=== PATIENT | female | born 1950 | race Caucasian/White ===

== ENCOUNTER 2023-12-21 22:05 | Inpatient (IN) | payer MEDICARE ==
[2023-12-21] MEDS: ONDANSETRON 4 MG/2 ML VIAL IVP STA (23:11)
[2023-12-21] MEDS: MORPHINE SULFATE 4 MG/ML SYRINGE IVP STA (23:12)
[2023-12-21 23:18] LABS: Basophils % (A) 0 %; Eosinophils # (A) 0.2 k/uL (0-0.7); Eosinophils % (A) 1 %; HCT 45.2 % (34.0-46.0); HGB 14.6 gm/dL (11.4-16.0); Lymphocytes # (A) 1.7 k/uL (1.0-4.8); Lymphocytes % (A) 9 %; MCH 29.7 pg (25.0-35.0); MCHC 32.4 g/dL (31.0-37.0); MCV 91.7 fL (80.0-100.0); Mean Platelet Volume 9.2; Monocytes # (A) 0.9 k/uL (0-1.0); Monocytes % (A) 5 %; Neutrophils # (A) 15.4 k/uL (1.3-7.7); Neutrophils % (A) 84 %; Platelet Count 262 k/uL (150-450); RBC 4.93 m/uL (3.80-5.40); RDW 12.8 % (11.5-15.5); WBC 18.4 k/uL (3.8-10.6)
[2023-12-21] MEDS: SODIUM CHLORIDE 0.9% 1,000 ML IV ONE (23:19)
[2023-12-21 23:29] LABS: Partial Thromboplastin Time 22.6 sec (22.0-30.0); Prothrombin Time 10.8 sec (10.0-12.5)
[2023-12-21 23:35] LABS: ALT 281 U/L (4-34); AST 350 U/L (14-36); African American GFR (CKD) 82 (>60 ml/min/1.73 sqM); Albumin 3.9 g/dL (3.5-5.0); Alkaline Phosphatase 174 U/L (38-126); Anion Gap 10 mmol/L; Blood Urea Nitrogen 26 mg/dL (7-17); Carbon Dioxide 22 mmol/L (22-30); Chloride 108 mmol/L (98-107); Glucose 147 mg/dL (74-99); Magnesium 1.8 mg/dL (1.6-2.3); Non-African American GFR(CKD) 71 (>60 ml/min/1.73 sqM); Potassium 3.9 mmol/L (3.5-5.1); Sodium 140 mmol/L (137-145); Total Bilirubin 2.3 mg/dL (0.2-1.3); Total Protein 7.4 g/dL (6.3-8.2)
[2023-12-22] MEDS: diphenhydrAMINE 50 MG/ML 1 ML VIAL IVP STA (00:02)
[2023-12-22] MEDS: HYDROmorphone 1 MG/ML 1 ML SYRINGE IVP STA (00:04)
[2023-12-22] MEDS: METOCLOPRAMIDE 5 MG/ML 2 ML VIAL IVP STA (00:08)
--- NOTE | 2023-12-22 00:25 | ED ---
Chest Pain HPI - General Chief Complaint: Chest Pain Stated Complaint: Chest Pain,Back Pain Time Seen by Provider: 12/21/23 22:10 Source: patient Mode of arrival: ambulatory Limitations: no limitations - History of Present Illness Initial Comments: 73-year-old female with no reported past medical history presents emergency department reporting epigastric pain. States that around 7:00 she had sudden onset of chest, back and abdominal pain. No history of similar in the past. She denies history of cardiac disease. No associated shortness of breath. She took Motrin for the pain which did not help. She does admit to nausea with associated vomiting. No numbness, tingling or weakness in her arms or legs. Patient does not drink alcohol. Admits to a history of normal to slightly high cholesterol 1 year ago. No history of gallstones. Denies fevers. No other alleviating, precipitating modifying factors - Related Data Allergies Allergy/AdvReac Type Severity Reaction Status Date / Time No Known Allergies Allergy Verified 12/21/23 22:10 Review of Systems ROS Statement: Those systems with pertinent positive or pertinent negative responses have been documented in the HPI. ROS Other: All systems not noted in ROS Statement are negative. Past Medical History Past Medical History: Osteoarthritis (OA) History of Any Multi-Drug Resistant Organisms: None Reported Past Surgical History: No Surgical Hx Reported Past Psychological History: No Psychological Hx Reported Smoking Status: Never smoker Past Alcohol Use History: Occasional Past Drug Use History: None Reported General Exam Limitations: no limitations General appearance: alert, in distress Head exam: Present: atraumatic, normocephalic, normal inspection Eye exam: Present: normal appearance, PERRL, EOMI. Absent: scleral icterus, conjunctival injection, periorbital swelling ENT exam: Present: normal exam, mucous membranes moist Neck exam: Present: normal inspection. Absent: tenderness, meningismus, lymphadenopathy Respiratory exam: Present: normal lung sounds bilaterally. Absent: respiratory distress, wheezes, rales, rhonchi, stridor Cardiovascular Exam: Present: regular rate, normal rhythm, normal heart sounds. Absent: systolic murmur, diastolic murmur, rubs, gallop, clicks GI/Abdominal exam: Present: tenderness (Epigastric) Extremities exam: Present: normal inspection, full ROM, normal capillary refill. Absent: tenderness, pedal edema, joint swelling, calf tenderness Back exam: Present: normal inspection Neurological exam: Present: alert, oriented X3, CN II-XII intact Course Vital Signs 12/21/23 12/21/23 12/22/23 22:08 23:22 01:28 Temperature 97.8 F Pulse Rate 69 68 87 Respiratory 18 18 14 Rate Blood Pressure 122/67 130/73 156/63 O2 Sat by Pulse 96 96 95 Oximetry 12/22/23 02:03 Temperature Pulse Rate 80 Respiratory 16 Rate Blood Pressure 137/74 O2 Sat by Pulse 95 Oximetry Chest Pain MDM - MDM Was pt. sent in by a medical professional or institution (, PA, SNOWBOARDING INSTRUCTOR, urgent care, hospital, or longterm...) When possible be specific @ -No Did you speak to anyone other than the patient for history (EMS, parent, family, police, friend...)? What history was obtained from this source @ -No Did you review nursing and triage notes (agree or disagree)? Why? @ -I reviewed and agree with nursing and triage notes Were old charts reviewed (outside hosp., previous admission, EMS record, old EKG, old radiological studies, urgent care reports/EKG's, longterm records)? Report findings @ -No old charts were reviewed Differential Diagnosis (chest pain, altered mental status, abdominal pain women, abdominal pain men, vaginal bleeding, weakness, fever, dyspnea, syncope, headache, dizziness, GI bleed, back pain, seizure, CVA, palpatations, mental health, musculoskeletal)? @ -Differential Abdominal Pain Women: Appendicitis, Cholecystitis, diverticulosis, ischemic bowel, pancreatitis, hepatitis, UTI, gastroenteritis, AAA, incarcerated hernia, bowel obstruction, constipation, inflammatory bowel, hepatitis, peptic ulcer disease, splenic infarction, perforated viscus, vulvitis, ovarian torsion, PID, kidney stone, placenta abruption, this is not meant to be an all-inclusive list EKG interpreted by me (3pts min.). @ -Yes and demonstrates sinus rhythm with a rate of 65. MA interval 190. QRS 97. QTc of 461. No acute ST segment elevations or depressions X-rays interpreted by me (1pt min.). @ -Yes and demonstrates no acute process CT interpreted by me (1pt min.). @ -Yes and demonstrates acute pancreatitis without gallbladder issue U/S interpreted by me (1pt. min.). @ -None done What testing was considered but not performed or refused? (CT, X-rays, U/S, labs)? Why? @ -Gallbladder ultrasound was considered however will be completed in the morning What meds were considered but not given or refused? Why? @ -None Did you discuss the management of the patient with other professionals (professionals i.e. , PA, SNOWBOARDING INSTRUCTOR, lab, RT, psych nurse, social work supervisor, communications administrator, teacher, strike operations officer, gearcase assembler)? Give summary @ -Spoke with Dr. Godoy who agreed to admit the patient Was smoking cessation discussed for >3mins.? @ -No Was critical care preformed (if so, how long)? @ -No Were there social determinants of health that impacted care today? How? (Homelessness, low income, unemployed, alcoholism, drug addiction, transportation, low edu. Level, literacy, decrease access to med. care, detention, rehab)? @ -No Was there de-escalation of care discussed even if they declined (Discuss DNR or withdrawal of care, Hospice)? DNR status @ -No What co-morbidities impacted this encounter? (DM, HTN, Smoking, COPD, CAD, Cancer, CVA, ARF, Chemo, Hep., AIDS, mental health diagnosis, sleep apnea, morbid obesity)? @ -None Was patient admitted / discharged? Hospital course, mention meds given and route, prescriptions, significant lab abnormalities, going to OR and other pertinent info. @ -Upon arrival patient seen and evaluated in room 2. Thorough history and physical exam was performed. IV access was established. Laboratory studies were conducted. Patient was given pain and nausea medications which entirely resolved her symptoms. Laboratory studies and CT are consistent with acute pancreatitis. No signs of gallstone pancreatitis at this time. Called and spoke with Dr. Godoy to discuss case. He was agreeable to admission. Requested that surgery be placed on consult. He is aware that GI is not available at this time. Patient was pain-free and admitted to the hospital in stable condition Undiagnosed new problem with uncertain prognosis? @ -No Drug Therapy requiring intensive monitoring for toxicity (Heparin, Nitro, Insulin, Cardizem)? @ -No Were any procedures done? @ -No Diagnosis/symptom? @ -Acute epigastric abdominal pain, acute pancreatitis Acute, or Chronic, or Acute on Chronic? @ -Acute Uncomplicated (without systemic symptoms) or Complicated (systemic symptoms)? @ -Complicated Side effects of treatment? @ -No Exacerbation, Progression, or Severe Exacerbation? @ -No Poses a threat to life or bodily function? How? (Chest pain, USA, ID, pneumonia, PE, COPD, DKA, ARF, appy, cholecystitis, CVA, Diverticulitis, Homicidal, Suicidal, threat to staff... and all critical care pts) @ -No Disposition Clinical Impression: Acute pancreatitis Disposition: ADMITTED IP TO THIS [facility] Condition: Stable Is patient prescribed a controlled substance at d/c from ED?: No Time of Disposition: 02:00 Decision to Admit Reason: Admit from EC Decision Date: 12/22/23 Decision Time: 02:00
--- NOTE | 2023-12-22 01:02 | CT ---
EXAM: CT Chest With Intravenous Contrast CLINICAL HISTORY: ITS.REASON CT Reason: abd pain, chest pain TECHNIQUE: Axial computed tomography images of the chest with intravenous contrast. This CT exam was performed using one or more of the following dose reduction techniques: automated exposure control, adjustment of the mA and/or kV according to patient size, and/or use of iterative reconstruction technique. COMPARISON: No relevant prior studies available. FINDINGS: Lungs: Atelectasis at the lung bases. No mass. Pleural space: Unremarkable. No pneumothorax. No significant effusion. Heart: Unremarkable. No cardiomegaly. No significant pericardial effusion. No significant coronary artery calcifications. Bones/joints: Unremarkable. No acute fracture. No dislocation. Soft tissues: Unremarkable. Vasculature: Unremarkable. No thoracic aortic aneurysm. No pulmonary embolism. Lymph nodes: Unremarkable. No enlarged lymph nodes. IMPRESSION: No pulmonary embolism. EXAM: CT Abdomen and Pelvis With Intravenous Contrast CLINICAL HISTORY: ITS.REASON CT Reason: abd pain, chest pain TECHNIQUE: Axial computed tomography images of the abdomen and pelvis with intravenous contrast. This CT exam was performed using one or more of the following dose reduction techniques: automated exposure control, adjustment of the mA and/or kV according to patient size, and/or use of iterative reconstruction technique. COMPARISON: No relevant prior studies available. FINDINGS: Lung bases: Unremarkable. No mass. No consolidation. ABDOMEN: Liver: Unremarkable. No mass. Gallbladder and bile ducts: Unremarkable. No calcified stones. No ductal dilation. Pancreas: Edema surrounding the pancreas, consistent with pancreatitis. No ductal dilation. Spleen: Unremarkable. No splenomegaly. Adrenals: Unremarkable. No mass. Kidneys and ureters: Unremarkable. No solid mass. No hydronephrosis. Stomach and bowel: Unremarkable. No obstruction. No mucosal thickening. PELVIS: Appendix: No findings to suggest acute appendicitis. Bladder: Unremarkable. No mass. Reproductive: Unremarkable as visualized. ABDOMEN and PELVIS: Intraperitoneal space: Unremarkable. No free air. No significant fluid collection. Bones/joints: No acute fracture. No dislocation. Soft tissues: Unremarkable. Vasculature: Unremarkable. No abdominal aortic aneurysm. Lymph nodes: Unremarkable. No enlarged lymph nodes. IMPRESSION: Edema surrounding the pancreas, consistent with pancreatitis.
[2023-12-22 01:19] LABS: Lipase >20000 U/L (23-300)
--- NOTE | 2023-12-22 01:20 | XR ---
EXAM: XR Chest, 2 Views CLINICAL HISTORY: ITS.REASON XR Reason: Chest Pain TECHNIQUE: Frontal and lateral views of the chest. COMPARISON: No relevant prior studies available. FINDINGS: Lungs: Retrocardiac opacities, concerning for pneumonia. Pleural space: Unremarkable. No pneumothorax. Heart: Unremarkable. No cardiomegaly. Mediastinum: Unremarkable. Normal mediastinal contour. Bones/joints: Unremarkable. No acute fracture. IMPRESSION: Retrocardiac opacities, concerning for pneumonia.
[2023-12-22] MEDS ORDERED: NALOXONE 0.4 MG/ML 1 ML VIAL IV PRN (02:02)
[2023-12-22] MEDS: SODIUM CHLORIDE 0.9% 1,000 ML IV SCH (02:17)
[2023-12-22] MEDS: HYDROmorphone 1 MG/ML 1 ML SYRINGE IVP PRN (03:27)
--- NOTE | 2023-12-22 08:28 | US ---
EXAMINATION TYPE: US gallbladder DATE OF EXAM: 12/22/2023 COMPARISON: 12/22/2023 CLINICAL INDICATION: Female, 73 years old with history of pancreatitis; Pancreatitis TECHNIQUE: Grayscale and color Doppler imaging of the right upper quadrant was performed. FINDINGS: EXAM MEASUREMENTS: Liver Length: 18.1 cm Gallbladder Wall: 0.2 cm CBD: 0.7 cm Right Kidney: 9.9 x 4.2 x 3.6 cm Pancreas: Echogenic in appearance. Tail obscured by overlying bowel gas Liver: wnl as visualized Gallbladder: multiple mobile echogenic foci, no wall thickening Evidence for sonographic Tsai's sign: neg CBD: wnl Right Kidney: No hydronephrosis or masses seen IMPRESSION: 1. No evidence for acute process. 2. Cholelithiasis. [facility], , 12/22/2023 8:26 AM
[2023-12-22 09:17] LABS: ALT 292 U/L (4-34); African American GFR (CKD) >90 (>60 ml/min/1.73 sqM); Albumin 4.1 g/dL (3.5-5.0); Albumin/Globulin Ratio 1.1; Anion Gap 12 mmol/L; Blood Urea Nitrogen 25 mg/dL (7-17); Calcium 8.6 mg/dL (8.4-10.2); Carbon Dioxide 20 mmol/L (22-30); Chloride 109 mmol/L (98-107); Globulin 3.6 g/dL; Glucose 138 mg/dL (74-99); Non-African American GFR(CKD) 82 (>60 ml/min/1.73 sqM); Sodium 141 mmol/L (137-145); Total Bilirubin 1.6 mg/dL (0.2-1.3); Total Protein 7.7 g/dL (6.3-8.2)
[2023-12-22 09:29] LABS: Amylase 1968 U/L (30-110)
[2023-12-22 09:30] LABS: AST 297 U/L (14-36); Alkaline Phosphatase 176 U/L (38-126); Potassium 4.9 mmol/L (3.5-5.1)
[2023-12-22 09:49] LABS: Lipase 11629 U/L (23-300)
--- NOTE | 2023-12-22 12:19 | P.GSCN ---
History of Present Illness Consult date: 12/22/23 History of present illness: CHIEF COMPLAINT: Abdominal pain HISTORY OF PRESENT ILLNESS: this is a 73-year-old female who presented to the hospital to complaints of epigastric abdominal pain that radiates to the back. Symptoms started around 7 PM last night. She also was having nausea and vomiting. Earlier in the the day she had eaten sausage with eggs. Patient denies any prior history of pancreatitis or gallstones. She denies any alcohol use. She had a CTA of chest abdomen pelvis that had reported edema around the pancreas and concerns for pancreatitis. Gallbladder ultrasound had reported cholelithiasis. Patient's LFTs and total bilirubin were also elevated on admission. Patient does report her pain is less today than it was yesterday. Patient may have passed. PAST MEDICAL HISTORY: Osteoarthritis PAST SURGICAL HISTORY: None MEDICATIONS: See below ALLERGIES: See below SOCIAL HISTORY: No illicit drug use. REVIEW OF SYSTEMS: CONSTITUTIONAL: Denies fever or chills. HEENT: Denies blurred vision, vision changes, or eye pain. Denies hemoptysis CARDIOVASCULAR: Denies chest pain or pressure. RESPIRATORY: No shortness of breath. GASTROINTESTINAL: See HPI for pertinent findings HEMATOLOGIC: Denies bleeding disorders. GENITOURINARY: Denies any blood in urine or increased urinary frequency. SKIN: Denies pruitis. Denies rash. PHYSICAL EXAM: VITAL SIGNS: Reviewed GENERAL: Well-developed in no acute distress. HEENT: No sclera icterus. Extraocular movements grossly intact. Moist buccal mucosa. Head is atraumatic, normocephalic. No nasal drainage. ABDOMEN: Soft. Nondistended. Epigastric and right upper quadrant tenderness with palpation no rebound or guarding noted. NEUROLOGIC: Alert and oriented. Cranial nerves II through XII grossly intact. LABORATORY DATA: WBC 18.4 Hgb 14.6 platelets 262 Sodium 141 potassium is 4.9 creatinine 0.73 Total bilirubin is down from 2.3-1.6 AST 350 down to 297 ALT 2 81-2 92 alk phos 1 74-1 76 Lipase greater than 20,000 down to 11 629 IMAGING: CT scan chest abdomen and pelvis reports no pulmonary embolism. Edema surrounding the pancreas consistent with pancreatitis. Gallbladder ultrasound no evidence for acute process. Cholelithiasis. ASSESSMENT: 1. Gallstone pancreatitis 2. Elevated total bilirubin and LFTs trending downwards. Patient likely passed a stone. PLAN: -Patient scheduled tentatively for a laparoscopic cholecystectomy tomorrow with Dr. Baig -Clear liquid diet today -N.p.o. after midnight -Repeat CBC CMP and lipase in a.m. -Continue antibiotics -Continue IV fluids Physician Machine Splitter note has been reviewed by physician. Signing provider agrees with the documented findings, assessment, and plan of care. Past Medical History Past Medical History: Osteoarthritis (OA) History of Any Multi-Drug Resistant Organisms: None Reported Past Surgical History: Tubal Ligation Additional Past Surgical History / Comment(s): Bunion surgery Past Psychological History: No Psychological Hx Reported Smoking Status: Former smoker Past Alcohol Use History: Occasional Past Drug Use History: None Reported - Past Family History Mother Family Medical History: Cancer Additional Family Medical History / Comment(s): Mother is 95 years old Father Additional Family Medical History / Comment(s): Father in his fifties Medications and Allergies Home Medications Medication Instructions Recorded Confirmed Type Alendronate Sodium [Fosamax] 70 mg PO WE 12/22/23 12/22/23 History Ibuprofen [Motrin] 800 mg PO Q8H PRN 12/22/23 12/22/23 History Allergies Allergy/AdvReac Type Severity Reaction Status Date / Time No Known Allergies Allergy Verified 12/22/23 08:35 Surgical - Exam Vital Signs Temp Pulse Resp BP Pulse Ox 97.8 F 69 18 122/67 96 12/21/23 22:08 12/21/23 22:08 12/21/23 22:08 12/21/23 22:08 12/21/23 22:08 Results - Labs 12/21/23 22:50 12/22/23 04:21 Abnormal Lab Results - Last 24 Hours (Table) 12/21/23 12/21/23 12/22/23 Range/Units 22:50 22:50 04:21 WBC 18.4 H (3.8-10.6) k/uL Neutrophils # 15.4 H (1.3-7.7) k/uL Chloride 108 H (98-107) mmol/L Carbon Dioxide (22-30) mmol/L BUN 26 H (7-17) mg/dL Glucose 147 H (74-99) mg/dL Total Bilirubin 2.3 H (0.2-1.3) mg/dL AST 350 H (14-36) U/L ALT 281 H (4-34) U/L Alkaline Phosphatase 174 H (38-126) U/L Cholesterol 225.00 H (0.00-200.00) mg/dL Amylase (30-110) U/L Lipase >19204 H (23-300) U/L 12/22/23 Range/Units 04:21 WBC (3.8-10.6) k/uL Neutrophils # (1.3-7.7) k/uL Chloride 109 H (98-107) mmol/L Carbon Dioxide 20 L (22-30) mmol/L BUN 25 H (7-17) mg/dL Glucose 138 H (74-99) mg/dL Total Bilirubin 1.6 H (0.2-1.3) mg/dL AST 297 H (14-36) U/L ALT 292 H (4-34) U/L Alkaline Phosphatase 176 H (38-126) U/L Cholesterol (0.00-200.00) mg/dL Amylase 1968 H* (30-110) U/L Lipase 53633 H (23-300) U/L Diabetes panel 12/21/23 12/22/23 Range/Units 22:50 04:21 Sodium 140 141 (137-145) mmol/L Potassium 3.9 4.9 (3.5-5.1) mmol/L Chloride 108 H 109 H (98-107) mmol/L Carbon Dioxide 22 20 L (22-30) mmol/L BUN 26 H 25 H (7-17) mg/dL Creatinine 0.82 0.73 (0.52-1.04) mg/dL Glucose 147 H 138 H (74-99) mg/dL Calcium 9.0 8.6 (8.4-10.2) mg/dL AST 350 H 297 H (14-36) U/L ALT 281 H 292 H (4-34) U/L Alkaline Phosphatase 174 H 176 H (38-126) U/L Total Protein 7.4 7.7 (6.3-8.2) g/dL Albumin 3.9 4.1 (3.5-5.0) g/dL Calcium panel 12/21/23 12/22/23 Range/Units 22:50 04:21 Calcium 9.0 8.6 (8.4-10.2) mg/dL Albumin 3.9 4.1 (3.5-5.0) g/dL Pituitary panel 12/21/23 12/22/23 Range/Units 22:50 04:21 Sodium 140 141 (137-145) mmol/L Potassium 3.9 4.9 (3.5-5.1) mmol/L Chloride 108 H 109 H (98-107) mmol/L Carbon Dioxide 22 20 L (22-30) mmol/L BUN 26 H 25 H (7-17) mg/dL Creatinine 0.82 0.73 (0.52-1.04) mg/dL Glucose 147 H 138 H (74-99) mg/dL Calcium 9.0 8.6 (8.4-10.2) mg/dL Adrenal panel 12/21/23 12/22/23 Range/Units 22:50 04:21 Sodium 140 141 (137-145) mmol/L Potassium 3.9 4.9 (3.5-5.1) mmol/L Chloride 108 H 109 H (98-107) mmol/L Carbon Dioxide 22 20 L (22-30) mmol/L BUN 26 H 25 H (7-17) mg/dL Creatinine 0.82 0.73 (0.52-1.04) mg/dL Glucose 147 H 138 H (74-99) mg/dL Calcium 9.0 8.6 (8.4-10.2) mg/dL Total Bilirubin 2.3 H 1.6 H (0.2-1.3) mg/dL AST 350 H 297 H (14-36) U/L ALT 281 H 292 H (4-34) U/L Alkaline Phosphatase 174 H 176 H (38-126) U/L Total Protein 7.4 7.7 (6.3-8.2) g/dL Albumin 3.9 4.1 (3.5-5.0) g/dL
[2023-12-22] MEDS: PIPERACILLIN-TAZOBACTAM 3.375 GM in SODIUM CHLORIDE 0.9% 100 ML IVPB SCH (15:43)
[2023-12-22 20:50] LABS: ALT 191 U/L (4-34); AST 115 U/L (14-36); African American GFR (CKD) >90 (>60 ml/min/1.73 sqM); Albumin 3.4 g/dL (3.5-5.0); Albumin/Globulin Ratio 1.1; Alkaline Phosphatase 143 U/L (38-126); Anion Gap 3 mmol/L; Blood Urea Nitrogen 18 mg/dL (7-17); Calcium 7.8 mg/dL (8.4-10.2); Carbon Dioxide 20 mmol/L (22-30); Chloride 113 mmol/L (98-107); Globulin 3.1 g/dL; Glucose 116 mg/dL (74-99); Non-African American GFR(CKD) 86 (>60 ml/min/1.73 sqM); Potassium 3.8 mmol/L (3.5-5.1); Sodium 136 mmol/L (137-145); Total Protein 6.5 g/dL (6.3-8.2)
--- NOTE | 2023-12-22 23:09 | P.CONS ---
History of Present Illness - Reason for Consult Consult date: 12/22/23 Cholangitis Requesting physician: Erwin Johnson - Chief Complaint Abdominal pain x 1 day - History of Present Illness Patient is a 73-year-old female with a past medical history significant for osteoarthritis tubal ligation and former smoker presenting to the hospital for evaluation of abdominal pain pain has been sudden in onset and started around 7 at the day of presentation to the hospital patient was describing the pain to be mostly in epigastric area sharp and almost 10 out of 10 in severity and no significant radiation patient did have associated nausea and vomiting however denies having any diarrhea or constipation patient mention she did took some Motrin without any relief patient denies drinking alcohol or high-grade fever on presentation to the hospital patient was afebrile no fever have been called subsequently patient was nontachycardic hypotensive or hypoxic and no need for supplemental oxygen patient did have white count of 18.4 with a left shift creatinine has been normal liver enzymes are elevated patient did have a CT of the chest abdominal pelvis no PE some atelectasis cooperated antibiotics were unremarkable there was edema surrounding the pancreas consistent with pancreatitis patient has been started on Zosyn infectious was consulted regarding cholangitis Review of Systems Positive point and negatives has been mentioned in the HPI, complete review of systems was performed and all other systems are negative Past Medical History Past Medical History: Osteoarthritis (OA) History of Any Multi-Drug Resistant Organisms: None Reported Past Surgical History: Tubal Ligation Additional Past Surgical History / Comment(s): Bunion surgery Past Psychological History: No Psychological Hx Reported Smoking Status: Former smoker Past Alcohol Use History: Occasional Past Drug Use History: None Reported - Past Family History Mother Family Medical History: Cancer Additional Family Medical History / Comment(s): Mother is 95 years old Father Additional Family Medical History / Comment(s): Father in his fifties Medications and Allergies Home Medications Medication Instructions Recorded Confirmed Type Alendronate Sodium [Fosamax] 70 mg PO WE 12/22/23 12/22/23 History Ibuprofen [Motrin] 800 mg PO Q8H PRN 12/22/23 12/22/23 History Allergies Allergy/AdvReac Type Severity Reaction Status Date / Time No Known Allergies Allergy Verified 12/22/23 08:35 Physical Exam Vitals: Vital Signs Temp Pulse Pulse Resp BP BP Pulse Ox 12/22/23 14:44 98.4 F 90 17 115/60 90 L 12/22/23 12:00 97.9 F 92 16 120/66 91 L 12/22/23 07:18 97.7 F 80 16 120/72 91 L 12/22/23 03:02 97.5 F L 84 16 140/83 94 L 12/22/23 03:00 84 16 12/22/23 02:23 97.1 F L 79 14 137/74 95 12/22/23 02:03 80 16 137/74 95 12/22/23 01:28 87 14 156/63 95 12/21/23 23:22 68 18 130/73 96 12/21/23 22:08 97.8 F 69 18 122/67 96 Intake and Output 12/22/23 12/22/23 12/22/23 06:59 14:59 22:59 Other: Voiding Method Toilet Toilet # Voids 2 Weight 106.594 kg GENERAL DESCRIPTION: Elderly female lying in bed, no distress. No tachypnea or accessory muscle of respiration use. HEENT: Shows Pallor , no scleral icterus. Oral mucous membrane is dry. No pharyngeal erythema or thrush NECK: Trachea central, no thyromegaly. LUNGS: Unlabored breathing. Clear to auscultation anteriorly. No wheeze or crackle. HEART: S1, S2, regular rate and rhythm. No loud murmur ABDOMEN: Soft, epigastric tenderness , no guarding or rigidity, no organomegaly EXTREMITIES: No edema of feet. SKIN: No rash, no masses palpable. NEUROLOGICAL: The patient is awake, alert, oriented x3, mood and affect normal. Results CBC & Chem 7: 12/21/23 22:50 12/22/23 20:23 Labs: Abnormal Lab Results - Last 24 Hours (Table) 12/21/23 12/21/23 12/22/23 Range/Units 22:50 22:50 04:21 WBC 18.4 H (3.8-10.6) k/uL Neutrophils # 15.4 H (1.3-7.7) k/uL Chloride 108 H (98-107) mmol/L Carbon Dioxide (22-30) mmol/L BUN 26 H (7-17) mg/dL Glucose 147 H (74-99) mg/dL Total Bilirubin 2.3 H (0.2-1.3) mg/dL AST 350 H (14-36) U/L ALT 281 H (4-34) U/L Alkaline Phosphatase 174 H (38-126) U/L Cholesterol 225.00 H (0.00-200.00) mg/dL Amylase (30-110) U/L Lipase >69582 H (23-300) U/L 12/21/ Range/Units 04:21 WBC (3.8-10.6) k/uL Neutrophils # (1.3-7.7) k/uL Chloride 109 H (98-107) mmol/L Carbon Dioxide 20 L (22-30) mmol/L BUN 25 H (7-17) mg/dL Glucose 138 H (74-99) mg/dL Total Bilirubin 1.6 H (0.2-1.3) mg/dL AST 297 H (14-36) U/L ALT 292 H (4-34) U/L Alkaline Phosphatase 176 H (38-126) U/L Cholesterol (0.00-200.00) mg/dL Amylase 1968 H* (30-110) U/L Lipase 31591 H (23-300) U/L Assessment and Plan (1) Cholangitis Current Visit: Yes Status: Acute Code(s): K83.09 - OTHER CHOLANGITIS SNOMED Code(s): 22497548 (2) Leukocytosis Current Visit: Yes Status: Acute Code(s): D72.829 - ELEVATED WHITE BLOOD CELL COUNT, UNSPECIFIED SNOMED Code(s): 623221263 (3) Acute pancreatitis Current Visit: Yes Status: Acute Code(s): K85.90 - ACUTE PANCREATITIS WITHOUT NECROSIS OR INFECTION, UNSP SNOMED Code(s): 117840623 Plan: 1patient presented to hospital with acute abdominal pain in the epigastric area this patient has been diagnosed with acute pancreatitis however the patient also have elevated liver enzymes with the possibility of gallstone pancreatitis and cholangitis not entirely excluded, will likely need to cover for the pancreatic gram-negative 2we will continue patient on Zosyn 3.37 g every 8 hours 3-n.p.o. and abdominal pain controlled We will follow on clinical condition and cultures to further adjust medication if needed Thank you for this consultation we will follow the patient along with you Dictation was produced using [employer] software. please excuse any grammatical, word or spelling errors. Time with Patient: Greater than 30
[2023-12-23 05:51] LABS: Basophils % (A) 0 %; Eosinophils # (A) 0.1 k/uL (0-0.7); Eosinophils % (A) 1 %; HCT 42.8 % (34.0-46.0); HGB 13.5 gm/dL (11.4-16.0); Hypochromasia Slight; Lymphocytes # (A) 1.3 k/uL (1.0-4.8); Lymphocytes % (A) 9 %; MCHC 31.7 g/dL (31.0-37.0); MCV 94.6 fL (80.0-100.0); Mean Platelet Volume 8.4; Monocytes # (A) 1.1 k/uL (0-1.0); Monocytes % (A) 7 %; Neutrophils # (A) 11.8 k/uL (1.3-7.7); Neutrophils % (A) 81 %; Platelet Count 228 k/uL (150-450); RBC 4.52 m/uL (3.80-5.40); RDW 13.1 % (11.5-15.5); WBC 14.6 k/uL (3.8-10.6)
[2023-12-23 06:09] LABS: ALT 167 U/L (4-34); AST 84 U/L (14-36); African American GFR (CKD) >90 (>60 ml/min/1.73 sqM); Albumin 3.2 g/dL (3.5-5.0); Alkaline Phosphatase 132 U/L (38-126); Anion Gap 6 mmol/L; Blood Urea Nitrogen 17 mg/dL (7-17); Calcium 7.9 mg/dL (8.4-10.2); Carbon Dioxide 19 mmol/L (22-30); Chloride 111 mmol/L (98-107); Globulin 3.2 g/dL; Glucose 98 mg/dL (74-99); Lipase 971 U/L (23-300); Non-African American GFR(CKD) 85 (>60 ml/min/1.73 sqM); Potassium 3.6 mmol/L (3.5-5.1); Sodium 136 mmol/L (137-145); Total Bilirubin 1.1 mg/dL (0.2-1.3); Total Protein 6.4 g/dL (6.3-8.2)
[2023-12-23] MEDS: IV FLUID CONTINUATION 300 ML IV ONE (07:40)
[2023-12-23] MEDS: ONDANSETRON 4 MG/2 ML VIAL IVP PRN (08:03)
[2023-12-23] MEDS: DEXAMETHASONE SOD PHOSPHATE 4 MG/ML 1 ML VIAL IVP STA (08:04)
[2023-12-23] MEDS: BUPIVACAINE (PF) 0.25% 30 ML VIAL SQ ONE ×2 (08:23→09:01)
[2023-12-23] MEDS ORDERED: SUCCINYLCHOLINE CHLORIDE 200 MG/10 ML VIAL IV ONE (08:39)
[2023-12-23] MEDS ORDERED: MIDAZOLAM 2 MG/2 ML VIAL ONE (08:39)
[2023-12-23] MEDS ORDERED: NEOSTIGMINE 1 MG/ML 10 ML VIAL ONE (08:39)
[2023-12-23] MEDS ORDERED: PROPOFOL 10 MG/ML 20 ML VIAL IV ONE (08:39)
[2023-12-23] MEDS ORDERED: GLYCOPYRROLATE 0.2 MG/ML 2 ML VIAL ONE (08:39)
[2023-12-23] MEDS ORDERED: ROCURONIUM 10 MG/ML (5 ML VIAL) IV ONE (08:39)
[2023-12-23] MEDS ORDERED: LIDOCAINE 1% INJ 10MG/ML (20 ML MDV) ONE (08:39)
[2023-12-23] MEDS ORDERED: KETOROLAC 15 MG/ML 1 ML VIAL ONE (08:39)
[2023-12-23] MEDS ORDERED: LIDOCAINE 4% LTA KIT (4 ML) TOPICAL ONE (08:39)
[2023-12-23] MEDS ORDERED: fentaNYL (PF) 50 MCG/ML 2 ML AMP ONE (08:39)
[2023-12-23] MEDS: HEPARIN SODIUM,PORCINE 5,000 UNIT/ML 1 ML VIAL SQ STA (08:43)
[2023-12-23] MEDS: LACTATED RINGERS 1,000 ML IV ONE (09:00)
--- NOTE | 2023-12-23 09:30 | P.OP ---
Date of Procedure: 12/23/23 Preoperative Diagnosis: Cholelithiasis Postoperative Diagnosis: Cholelithiasis Procedure(s) Performed: Laparoscopic cholecystectomy Anesthesia: ISAAC Surgeon: Daniel Baig Estimated Blood Loss (ml): 5 Pathology: other (gAll bladder) Condition: stable Disposition: PACU Description of Procedure: The patient was placed on the operating table. The patient received a general endotracheal tube anesthesia. The patients abdomen was prepped and draped in the usual sterile fashion. Through an infraumbilical stab incision, the fascia of the anterior abdominal wall was grasped with a pair of Kochers and then the Veress needle was placed in the peritoneal cavity. Position of the Veress needle was confirmed with positive drop test. The abdomen was then insufflated. After adequate insufflation, the 10 mm trocar was placed in the peritoneal cavity. Following this the laparoscope was placed in the peritoneal cavity. The patient was placed in the head-up, right side up position and then a 5 mm trocar was placed in the right lateral and right subcostal position under direct visualization. A 8 mm trocar was placed in the epigastric position. The gallbladder was grasped in the fundus and infundibulum. Traction on the gallbladder was placed in the lateral and the cephalad positions. The triangle of Calot was visualized.. The cystic duct was bluntly dissected until the union of the cystic duct and common bile duct was seen. A critical view of safety was achieved. The cystic duct was then divided and sealed with the Harmonic scissors. A PDS Endoloop was then placed throughout the cystic duct stump. The cystic artery divided and sealed with the Harmonic scissors. The gallbladder was then removed from the liver bed using Harmonic scissors. The gallbladder was then extracted through the epigastric port site. Operative field was checked for any bleeding spots and Harmonic scissors was used to coagulate the liver bed. The abdomen was irrigated. The trocars were removed. The skin was closed using interrupted 3-0 Vicryl suture. Dermabond dressing were applied. The patient tolerated the procedure well.
[2023-12-23] MEDS ORDERED: NALOXONE 0.4 MG/ML 1 ML VIAL IV PRN (09:31)
[2023-12-23] MEDS ORDERED: ONDANSETRON 4 MG/2 ML VIAL IVP PRN (09:31)
[2023-12-23] MEDS ORDERED: HYDROmorphone 0.5 MG/0.5 ML SYRINGE IVP PRN (09:31)
[2023-12-23] MEDS: LACTATED RINGERS 1,000 ML IV SCH (11:37)
[2023-12-23] MEDS: KETOROLAC 15 MG/ML 1 ML VIAL IVP SCH (11:38)
--- NOTE | 2023-12-23 15:14 | P.PN ---
Subjective Progress Note Date: 12/23/23 CHIEF COMPLAINT: Gallstone pancreatitis HISTORY OF PRESENT ILLNESS: Patient postop day #0 status post laparoscopic cholecystectomy. Vital stable. White count has trended down from 18-14 LFTs and total bilirubin are trending downwards.. Lipase trending down PHYSICAL EXAM: VITAL SIGNS: Reviewed. GENERAL: Well-developed in no acute distress. ABDOMEN: Soft. Nondistended. NEUROLOGIC: Alert and oriented. Cranial nerves II through XII grossly intact. ASSESSMENT: 1. Gallstone pancreatitis 2. Cholelithiasis 3. LFTs trending downwards PLAN: -Repeat labs ordered for tomorrow -Continue to monitor LFTs Physician Home Energy Auditor note has been reviewed by physician. Signing provider agrees with the documented findings, assessment, and plan of care. Objective - Vital Signs Vital signs: Vital Signs Temp 98.1 F 12/23/23 14:06 Pulse 86 12/23/23 14:06 Resp 17 12/23/23 14:06 BP 124/64 12/23/23 14:06 Pulse Ox 97 12/23/23 14:06 FiO2 Intake & Output 12/22/23 12/23/23 12/23/23 18:59 06:59 18:59 Intake Total 700 Output Total 5 Balance 695 Weight 106.594 kg Intake: IV 700 Output: Estimated Blood Loss 5 Other: Voiding Method Toilet Toilet # Voids 2 - Labs CBC & Chem 7: 12/23/23 04:59 12/23/23 04:59 Labs: Abnormal Lab Results - Last 24 Hours (Table) 12/22/23 12/23/23 12/23/23 Range/Units 20:23 04:59 04:59 WBC 14.6 H (3.8-10.6) k/uL Neutrophils # 11.8 H (1.3-7.7) k/uL Monocytes # 1.1 H (0-1.0) k/uL Sodium 136 L 136 L (137-145) mmol/L Chloride 113 H 111 H (98-107) mmol/L Carbon Dioxide 20 L 19 L (22-30) mmol/L BUN 18 H (7-17) mg/dL Glucose 116 H (74-99) mg/dL Calcium 7.8 L 7.9 L (8.4-10.2) mg/dL AST 115 H 84 H (14-36) U/L ALT 191 H 167 H (4-34) U/L Alkaline Phosphatase 143 H 132 H (38-126) U/L Albumin 3.4 L 3.2 L (3.5-5.0) g/dL Lipase 971 H (23-300) U/L
--- NOTE | 2023-12-23 22:20 | HP ---
HISTORY AND PHYSICAL HISTORY OF PRESENT ILLNESS: A 73-year-old white female presenting with epigastric pain, sudden onset chest, back, and abdominal pain, came in, was found to have choledocholithiasis and acute cholecystitis with acute pancreatitis of 20,000, possibly had passed gallstone. She is admitted for surgery and scheduled for gallbladder surgery. ALLERGIES: Negative. REVIEW OF SYSTEMS: A 14-point review of systems otherwise negative. She has history of osteoarthritis. PHYSICAL EXAMINATION: GENERAL: Overweight white female, in no acute distress. She is not talking. VITAL SIGNS: Temperature 97.8, pulse 68 to 97, blood pressure 120s to 150s over 60s to 70s, O2 of 96%. HEENT: Normocephalic, atraumatic. LUNGS: Essentially clear. HEART: Regular rate and rhythm. GI: Soft. Diffuse tenderness across the abdomen. No guarding. EXTREMITIES: Show no edema. Range of motion full. NEUROLOGIC: Cranial nerves intact. LABORATORY DATA: Labs were reviewed. ASSESSMENT: Acute choledocholithiasis, acute cholecystitis. She had gallbladder pancreatitis, admitted her. She is scheduled for surgery. Antibiotic prophylaxis due to elevated white count. Consult Infectious Disease for possible cholangitis. Prognosis guarded. Please see further orders. MMODL / IJN: [id number] /
[2023-12-24 07:05] LABS: Basophils % (A) 0 %; Eosinophils # (A) 0.2 k/uL (0-0.7); Eosinophils % (A) 1 %; HCT 40.4 % (34.0-46.0); HGB 12.9 gm/dL (11.4-16.0); Lymphocytes # (A) 1.6 k/uL (1.0-4.8); Lymphocytes % (A) 12 %; MCH 29.8 pg (25.0-35.0); MCV 93.3 fL (80.0-100.0); Mean Platelet Volume 8.9; Monocytes # (A) 0.9 k/uL (0-1.0); Monocytes % (A) 6 %; Neutrophils # (A) 10.9 k/uL (1.3-7.7); Neutrophils % (A) 79 %; Platelet Count 221 k/uL (150-450); RBC 4.33 m/uL (3.80-5.40); WBC 13.7 k/uL (3.8-10.6)
[2023-12-24 07:07] LABS: ALT 106 U/L (4-34); AST 52 U/L (14-36); African American GFR (CKD) 82 (>60 ml/min/1.73 sqM); Albumin 3.3 g/dL (3.5-5.0); Albumin/Globulin Ratio 1.1; Alkaline Phosphatase 121 U/L (38-126); Anion Gap 3 mmol/L; Blood Urea Nitrogen 21 mg/dL (7-17); Calcium 8.4 mg/dL (8.4-10.2); Carbon Dioxide 22 mmol/L (22-30); Chloride 113 mmol/L (98-107); Glucose 98 mg/dL (74-99); Non-African American GFR(CKD) 71 (>60 ml/min/1.73 sqM); Potassium 3.6 mmol/L (3.5-5.1); Sodium 138 mmol/L (137-145); Total Protein 6.3 g/dL (6.3-8.2)
[2023-12-24] MEDS: ENOXAPARIN 40 MG/0.4 ML SYRINGE SQ SCH (07:26)
[2023-12-24] MEDS: HYDROcodone/APAP 5-325MG 1 EACH TAB PO PRN (07:32)
--- NOTE | 2023-12-24 12:58 | P.PN ---
Subjective Progress Note Date: 12/24/23 CHIEF COMPLAINT: Gallstone pancreatitis HISTORY OF PRESENT ILLNESS: Patient postop day #1 status post laparoscopic cholecystectomy. Patient's pain is controlled. She is tolerating diet. She has been up and ambulating. She is having flatus. Afebrile. Her white count is down from 14-13 LFTs are trending downwards and total bilirubin has been normal PHYSICAL EXAM: VITAL SIGNS: Reviewed. GENERAL: Well-developed in no acute distress. ABDOMEN: Soft. Nondistended. Incision sites clean dry and intact NEUROLOGIC: Alert and oriented. Cranial nerves II through XII grossly intact. ASSESSMENT: 1. Gallstone pancreatitis 2. Cholelithiasis 3. LFTs trending downwards PLAN: -Patient can be discharge from surgical standpoint Physician Beaming Machine Operator note has been reviewed by physician. Signing provider agrees with the documented findings, assessment, and plan of care. Objective - Vital Signs Vital signs: Vital Signs Temp 97.6 F 12/24/23 07:37 Pulse 82 12/24/23 07:37 Resp 16 12/24/23 07:37 BP 144/76 12/24/23 07:37 Pulse Ox 96 12/24/23 07:37 FiO2 Intake & Output 12/23/23 12/24/23 12/24/23 18:59 06:59 18:59 Intake Total 1240 1075 Output Total 5 Balance 1235 1075 Weight 106.594 kg Intake: IV 700 Intake, IV Titration 1075 Amount Lactated Ringers 1,000 ml 875 @ 125 mls/hr IV .Q8H ZOË Rx#:[id number] Piperacillin-Tazobactam 3 200 .375 gm In Sodium Chloride 0.9% 100 ml @ 25 mls/hr IVPB Q8HR ZOË Rx# :[id number] Oral 540 Output: Estimated Blood Loss 5 Other: Voiding Method Toilet # Voids 2 - Labs CBC & Chem 7: 12/24/23 06:32 12/24/23 06:32 Labs: Abnormal Lab Results - Last 24 Hours (Table) 12/24/23 12/24/23 Range/Units 06:32 06:32 WBC 13.7 H (3.8-10.6) k/uL Neutrophils # 10.9 H (1.3-7.7) k/uL Chloride 113 H (98-107) mmol/L BUN 21 H (7-17) mg/dL AST 52 H (14-36) U/L ALT 106 H (4-34) U/L Albumin 3.3 L (3.5-5.0) g/dL
[2023-12-24 13:04] VITALS: BP 106/67; PULSE 74; RESP 17; TEMP 97.9
--- NOTE | 2023-12-24 13:12 | P.PN ---
Subjective Progress Note Date: 12/23/23 Principal diagnosis: Reason for follow-up is gallstone pancreatitis/cholangitis, leukocytosis Patient is a 73-year-old female with a past medical history significant for osteoarthritis tubal ligation and former smoker presenting to the hospital for evaluation of abdominal pain patient has been diagnosed with possible gallstone pancreatitis with elevated liver enzymes concerning for possible cholangitis. Patient is status post laparoscopic appendectomy completed on 12/23/2023 On today's evaluation that is 12/23/2023, patient has been afebrile, patient is breathing comfortably and is currently on 2 L nasal cannula oxygen patient denies having any significant cough no chest pain, patient denies nausea vomiting or diarrhea and abdominal pain has slightly decreased in intensity. Patient white count is down to 14.6 creatinine 0.71 lipase is down to 971 from initial reading of more than 20,000 Objective - Vital Signs Vital signs: Vital Signs Temp 98 F 12/23/23 10:40 Pulse 77 12/23/23 10:40 Resp 16 12/23/23 10:40 BP 137/81 12/23/23 10:40 Pulse Ox 92 L 12/23/23 10:40 FiO2 Intake & Output 12/22/23 12/23/23 12/23/23 18:59 06:59 18:59 Intake Total 700 Output Total 5 Balance 695 Weight 106.594 kg Intake: IV 700 Output: Estimated Blood Loss 5 Other: Voiding Method Toilet Toilet # Voids 2 - Exam GENERAL DESCRIPTION: An elderly female lying in bed in no distress RESPIRATORY SYSTEM: Unlabored breathing , decreased breath sounds at bases HEART: S1 S2 regular rate and rhythm , ABDOMEN: Soft , mild tenderness EXTREMITIES: No edema feet - Labs CBC & Chem 7: 12/24/23 06:32 12/24/23 06:32 Labs: Abnormal Lab Results - Last 24 Hours (Table) 12/22/23 12/23/23 12/23/23 Range/Units 20:23 04:59 04:59 WBC 14.6 H (3.8-10.6) k/uL Neutrophils # 11.8 H (1.3-7.7) k/uL Monocytes # 1.1 H (0-1.0) k/uL Sodium 136 L 136 L (137-145) mmol/L Chloride 113 H 111 H (98-107) mmol/L Carbon Dioxide 20 L 19 L (22-30) mmol/L BUN 18 H (7-17) mg/dL Glucose 116 H (74-99) mg/dL Calcium 7.8 L 7.9 L (8.4-10.2) mg/dL AST 115 H 84 H (14-36) U/L ALT 191 H 167 H (4-34) U/L Alkaline Phosphatase 143 H 132 H (38-126) U/L Albumin 3.4 L 3.2 L (3.5-5.0) g/dL Lipase 971 H (23-300) U/L Assessment and Plan (1) Cholangitis Current Visit: Yes Status: Acute Code(s): K83.09 - OTHER CHOLANGITIS SNOMED Code(s): 53809022 (2) Leukocytosis Current Visit: Yes Status: Acute Code(s): D72.829 - ELEVATED WHITE BLOOD CELL COUNT, UNSPECIFIED SNOMED Code(s): 672013379 (3) Acute pancreatitis Current Visit: Yes Status: Acute Code(s): K85.90 - ACUTE PANCREATITIS WITHOUT NECROSIS OR INFECTION, UNSP SNOMED Code(s): 469152018 Plan: 1patient presented to hospital with acute abdominal pain in the epigastric area this patient has been diagnosed with acute pancreatitis however the patient also have elevated liver enzymes with the possibility of gallstone pancreatitis and cholangitis not entirely excluded, will likely need to cover for the pancreatic gram-negative 2patient is status post laparoscopic cholecystectomy completed on 12/24/2023 3the patient white count is trending down continue with Zosyn and monitor cl inical course closely Dictation was produced using [employer] dictation software. please excuse any gram matical, word or spelling errors. Time with Patient: Less than 30
--- NOTE | 2023-12-24 13:13 | P.PN ---
Subjective Progress Note Date: 12/24/23 Principal diagnosis: Reason for follow-up is gallstone pancreatitis/cholangitis, leukocytosis Patient is a 73-year-old female with a past medical history significant for osteoarthritis tubal ligation and former smoker presenting to the hospital for evaluation of abdominal pain patient has been diagnosed with possible gallstone pancreatitis with elevated liver enzymes concerning for possible cholangitis. Patient is status post laparoscopic appendectomy completed on 12/23/2023 On today's evaluation that is 12/24/2023, the patient continues to be afebrile, the patient is on 2 L nasal cannula oxygen and breathing comfortably, the Pt denies having any chest pain or cough, the patient denies having any vomiting or any diarrhea and abdominal pain has decreased in intensity has been complaining of mostly back pain from the beds and wants to go home. Patient white count is down to 13.7 creatinine 0.82 Objective - Vital Signs Vital signs: Vital Signs Temp 97.9 F 12/24/23 13:02 Pulse 74 12/24/23 13:02 Resp 17 12/24/23 13:02 BP 106/67 12/24/23 13:02 Pulse Ox 98 12/24/23 13:02 FiO2 Intake & Output 12/23/23 12/24/23 12/24/23 18:59 06:59 18:59 Intake Total 1240 1075 Output Total 5 Balance 1235 1075 Weight 106.594 kg Intake: IV 700 Intake, IV Titration 1075 Amount Lactated Ringers 1,000 ml 875 @ 125 mls/hr IV .Q8H ZOË Rx#:[id number] Piperacillin-Tazobactam 3 200 .375 gm In Sodium Chloride 0.9% 100 ml @ 25 mls/hr IVPB Q8HR ZOË Rx# :[id number] Oral 540 Output: Estimated Blood Loss 5 Other: Voiding Method Toilet # Voids 2 - Exam GENERAL DESCRIPTION: An elderly female lying in bed in no distress RESPIRATORY SYSTEM: Unlabored breathing , decreased breath sounds at bases HEART: S1 S2 regular rate and rhythm , ABDOMEN: Soft , mild tenderness EXTREMITIES: No edema feet - Labs CBC & Chem 7: 12/24/23 06:32 12/24/23 06:32 Labs: Abnormal Lab Results - Last 24 Hours (Table) 12/24/23 12/24/23 Range/Units 06:32 06:32 WBC 13.7 H (3.8-10.6) k/uL Neutrophils # 10.9 H (1.3-7.7) k/uL Chloride 113 H (98-107) mmol/L BUN 21 H (7-17) mg/dL AST 52 H (14-36) U/L ALT 106 H (4-34) U/L Albumin 3.3 L (3.5-5.0) g/dL Assessment and Plan (1) Cholangitis Current Visit: Yes Status: Acute Code(s): K83.09 - OTHER CHOLANGITIS SNOMED Code(s): 88790759 (2) Leukocytosis Current Visit: Yes Status: Acute Code(s): D72.829 - ELEVATED WHITE BLOOD CELL COUNT, UNSPECIFIED SNOMED Code(s): 705268591 (3) Acute pancreatitis Current Visit: Yes Status: Acute Code(s): K85.90 - ACUTE PANCREATITIS WITHOUT NECROSIS OR INFECTION, UNSP SNOMED Code(s): 114715969 Plan: 1patient presented to hospital with acute abdominal pain in the epigastric area this patient has been diagnosed with acute pancreatitis however the patient also have elevated liver enzymes with the possibility of gallstone pancreatitis and cholangitis not entirely excluded, will likely need to cover for the pancreatic gram-negative 2patient is status post laparoscopic cholecystectomy completed on 12/24/2023 3the patient is afebrile, and white count is trending down, abdominal pain has decreased intensity, patient to continue with Zosyn while inpatient short course of oral Augmentin on discharge Dictation was produced using [employer] dictation software. please excuse any grammatical, word or spelling errors. Time with Patient: Less than 30
== END 2023-12-24 18:25 | disposition home or self-care (01) | DRG 417 ==
LOC: EC 22:05 → 5NMEDONC 12-22 02:03
PROVIDERS: ADMIT Family Medicine; ATTEND Family Medicine
PROC: 0FT44ZZ Resection of Gallbladder, Percutaneous Endoscopic Approach (ICD-10-PCS; principal; 2023-12-23 08:30)
DX: K80.10 Calculus of gallbladder with chronic cholecystitis without obstruction (principal); K85.10 Biliary acute pancreatitis without necrosis or infection; K83.09 Other cholangitis; Z59.00 Homelessness unspecified; E78.00 Pure hypercholesterolemia, unspecified; F10.20 Alcohol dependence, uncomplicated; M19.90 Unspecified osteoarthritis, unspecified site; I10 Essential (primary) hypertension; I25.10 Atherosclerotic heart disease of native coronary artery without angina pectoris; Z79.83 Long term (current) use of bisphosphonates; Z98.51 Tubal ligation status; Z87.891 Personal history of nicotine dependence
CPT/HCPCS: 36415; 71046; 71260; 74177; 76705; 80053; 82150; 82465; 83690; 83735; 84484; 85025; 85610; 85730; 88304; 93005; 96361; 96374; 96375; 99285